=== PATIENT | male | born 1980 | race Caucasian/White ===

== ENCOUNTER 2017-01-06 00:43 | Emergency (ER) | payer MEDICAID ==
[2017-01-06 01:16] LABS: BASOPHILS 0.1 % (0-2); EOSINOPHILS 0.9 % (0-7); HEMATOCRIT 44.9 % (42.0-54.0); HEMOGLOBIN 15.9 g/dL (13.5-17.5); IMMATURE GRANULOCYTES 0.3 % (0-5); LYMPHOCYTES 24.4 % (15-50); MCH 32.9 pg (26.0-34.0); MCHC 35.4 g/dL (31.0-37.0); MEAN PLATELET VOLUME 9.4 fL (7.4-10.4); MONOCYTES 6.6 % (2-11); NEUTROPHILS 67.7 % (40-80); PLATELET COUNT 265 10x3/uL (130-400); RBC 4.83 10x6/uL (4.20-6.10); RDW 12.5 % (11.5-14.5); WBC 14.5 10x3/uL (4.8-10.8)
[2017-01-06 01:33] LABS: ALBUMIN 3.8 g/dL (3.4-5.0); ALKALINE PHOSPHATASE 52 U/L (46-116); ALT (SGPT) 35 U/L (10-68); CALC OSMOLALITY 275 mosm/kg (275-300); CALCIUM 8.8 mg/dL (8.5-10.1); CARBON DIOXIDE 28.8 mmol/L (21.0-32.0); CHLORIDE - SERUM 104 mmol/L (98-107); CREATININE - SERUM 1.2 mg/dL (0.6-1.3); GLUCOSE 116 mg/dL (74-106); POTASSIUM - SERUM 4.3 mmol/L (3.5-5.1); PROTEIN - SERUM 7.4 g/dL (6.4-8.2); SODIUM 138 mmol/L (136-145); UREA NITROGEN 9 mg/dL (7-18); eGFR NON AFRICAN AMERICAN 72 mL/min (90-120)
[2017-01-06 01:45] LABS: AMYLASE - SERUM 80 U/L (25-115); CKMB 0.4 U/L (0.0-3.6); CREATINE KINASE 126 UL (21-232); LIPASE 94 U/L (73-393); TROPONIN-I < 0.017 ng/mL (0.000-0.060)
== END 2017-01-06 02:59 | disposition home or self-care (01) ==
LOC: D.ER 00:43
PROVIDERS: Emergency Medicine
DX: J18.9 Pneumonia, unspecified organism (principal); R10.9 Unspecified abdominal pain

== ENCOUNTER 2017-03-03 20:34 | Emergency (ER) | payer MEDICAID ==
[2017-03-03 21:09] LABS: BASOPHILS 0.1 % (0-2); EOSINOPHILS 0.2 % (0-7); HEMOGLOBIN 16.6 g/dL (13.5-17.5); IMMATURE GRANULOCYTES 0.3 % (0-5); LYMPHOCYTES 9.4 % (15-50); MCH 33.1 pg (26.0-34.0); MCHC 36.1 g/dL (31.0-37.0); MCV 91.6 fL (80.0-100.0); MEAN PLATELET VOLUME 9.7 fL (7.4-10.4); MONOCYTES 6.7 % (2-11); NEUTROPHILS 83.3 % (40-80); PLATELET COUNT 253 10x3/uL (130-400); RBC 5.02 10x6/uL (4.20-6.10); RDW 12.5 % (11.5-14.5); WBC 14.3 10x3/uL (4.8-10.8)
[2017-03-03 21:25] LABS: ALBUMIN 3.8 g/dL (3.4-5.0); ALKALINE PHOSPHATASE 67 U/L (46-116); ALT (SGPT) 27 U/L (10-68); AMYLASE - SERUM 148 U/L (25-115); BILIRUBIN - TOTAL 0.88 mg/dL (0.2-1.3); CALC OSMOLALITY 279 mosm/kg (275-300); CALCIUM 8.7 mg/dL (8.5-10.1); CARBON DIOXIDE 25.4 mmol/L (21.0-32.0); CHLORIDE - SERUM 104 mmol/L (98-107); GLUCOSE 115 mg/dL (74-106); LIPASE 250 U/L (73-393); POTASSIUM - SERUM 3.7 mmol/L (3.5-5.1); PROTEIN - SERUM 7.5 g/dL (6.4-8.2); SODIUM 140 mmol/L (136-145); UREA NITROGEN 13 mg/dL (7-18); eGFR NON AFRICAN AMERICAN 89 mL/min (90-120)
== END 2017-03-04 00:30 | disposition home or self-care (01) ==
LOC: D.ER 20:34
PROVIDERS: Family Medicine
DX: K52.9 Noninfective gastroenteritis and colitis, unspecified (principal); R19.7 Diarrhea, unspecified; R50.9 Fever, unspecified; F17.200 Nicotine dependence, unspecified, uncomplicated

== ENCOUNTER → 2017-03-12 11:25 | Outpatient (CLI) | payer MEDICAID | END | disposition home or self-care (01) | LOC: D.CT 11:25 | DX: R06.00 Dyspnea, unspecified (principal) ==

== ENCOUNTER → 2017-03-18 12:33 | Outpatient (CLI) | payer MEDICAID | END | disposition home or self-care (01) | LOC: D.CT 12:33 | DX: R10.9 Unspecified abdominal pain (principal) ==

== ENCOUNTER 2017-05-13 23:15 | Emergency (ER) | payer BC | END 2017-05-14 00:32 | disposition home or self-care (01) | LOC: D.ER 23:15 | DX: K02.9 Dental caries, unspecified (principal); K08.89 Other specified disorders of teeth and supporting structures; M26.629 Arthralgia of temporomandibular joint, unspecified side ==

== ENCOUNTER 2017-05-20 11:31 | Emergency (ER) | payer BC ==
[2017-05-20 12:45] LABS: BASOPHILS 0.1 % (0-2); EOSINOPHILS 0.1 % (0-7); HEMATOCRIT 45.1 % (42.0-54.0); HEMOGLOBIN 15.8 g/dL (13.5-17.5); IMMATURE GRANULOCYTES 0.2 % (0-5); LYMPHOCYTES 15.5 % (15-50); MCH 32.6 pg (26.0-34.0); MCV 93.2 fL (80.0-100.0); MEAN PLATELET VOLUME 9.4 fL (7.4-10.4); MONOCYTES 10.5 % (2-11); NEUTROPHILS 73.6 % (40-80); PLATELET COUNT 231 10x3/uL (130-400); RBC 4.84 10x6/uL (4.20-6.10); RDW 12.5 % (11.5-14.5); WBC 14.3 10x3/uL (4.8-10.8)
[2017-05-20 13:14] LABS: ALBUMIN 3.4 g/dL (3.4-5.0); ALKALINE PHOSPHATASE 45 U/L (46-116); ALT (SGPT) 33 U/L (10-68); BILIRUBIN - TOTAL 0.79 mg/dL (0.2-1.3); CALC OSMOLALITY 269 mosm/kg (275-300); CARBON DIOXIDE 28.2 mmol/L (21.0-32.0); CHLORIDE - SERUM 98 mmol/L (98-107); CREATININE - SERUM 0.9 mg/dL (0.6-1.3); GLUCOSE 132 mg/dL (74-106); POTASSIUM - SERUM 4.7 mmol/L (3.5-5.1); PROTEIN - SERUM 7.2 g/dL (6.4-8.2); SODIUM 133 mmol/L (136-145); UREA NITROGEN 17 mg/dL (7-18); eGFR NON AFRICAN AMERICAN > 90 mL/min (90-120)
== END 2017-05-20 14:11 | disposition home or self-care (01) ==
LOC: D.ER 11:31
PROVIDERS: Family Medicine
DX: R50.9 Fever, unspecified (principal); K08.89 Other specified disorders of teeth and supporting structures; K05.10 Chronic gingivitis, plaque induced; F17.200 Nicotine dependence, unspecified, uncomplicated

== ENCOUNTER 2017-08-22 23:15 | Emergency (ER) | payer BC | END 2017-08-23 00:25 | disposition home or self-care (01) | LOC: D.ER 23:15 | DX: R06.00 Dyspnea, unspecified (principal); J68.9 Unspecified respiratory condition due to chemicals, gases, fumes and vapors; F17.200 Nicotine dependence, unspecified, uncomplicated ==

== ENCOUNTER 2017-10-08 12:04 | Emergency (ER) | payer BC ==
[2017-10-08 12:54] LABS: BASOPHILS 0.2 % (0-2); EOSINOPHILS 1.1 % (0-7); HEMATOCRIT 46.8 % (42.0-54.0); HEMOGLOBIN 16.6 g/dL (13.5-17.5); IMMATURE GRANULOCYTES 0.1 % (0-5); LYMPHOCYTES 34.4 % (15-50); MCH 32.9 pg (26.0-34.0); MCHC 35.5 g/dL (31.0-37.0); MCV 92.7 fL (80.0-100.0); MEAN PLATELET VOLUME 9.3 fL (7.4-10.4); MONOCYTES 6.2 % (2-11); PLATELET COUNT 268 10x3/uL (130-400); RBC 5.05 10x6/uL (4.20-6.10); RDW 12.6 % (11.5-14.5); WBC 9.9 10x3/uL (4.8-10.8)
[2017-10-08 13:12] LABS: ALBUMIN 4.1 g/dL (3.4-5.0); ALKALINE PHOSPHATASE 58 U/L (46-116); ALT (SGPT) 38 U/L (10-68); BILIRUBIN - TOTAL 0.75 mg/dL (0.2-1.3); CALC OSMOLALITY 275 mosm/kg (275-300); CALCIUM 9.5 mg/dL (8.5-10.1); CARBON DIOXIDE 28.6 mmol/L (21.0-32.0); CHLORIDE - SERUM 100 mmol/L (98-107); CREATININE - SERUM 1.1 mg/dL (0.6-1.3); GLUCOSE 99 mg/dL (74-106); POTASSIUM - SERUM 4.3 mmol/L (3.5-5.1); PROTEIN - SERUM 8.2 g/dL (6.4-8.2); SODIUM 138 mmol/L (136-145); UREA NITROGEN 13 mg/dL (7-18); eGFR NON AFRICAN AMERICAN 79 mL/min (90-120)
[2017-10-08 13:33] LABS: CKMB 0.7 U/L (0.0-3.6); CREATINE KINASE 164 UL (21-232)
[2017-10-08 13:34] LABS: TROPONIN-I < 0.017 ng/mL (0.000-0.060)
== END 2017-10-08 15:35 | disposition home or self-care (01) ==
LOC: D.ER 12:04
PROVIDERS: Emergency Medicine
DX: R07.89 Other chest pain (principal); F17.200 Nicotine dependence, unspecified, uncomplicated

== ENCOUNTER 2017-10-12 06:35 | Emergency (ER) | payer BC ==
[2017-10-12 07:38] LABS: BASOPHILS 0.2 % (0-2); EOSINOPHILS 0.9 % (0-7); HEMATOCRIT 43.7 % (42.0-54.0); HEMOGLOBIN 15.2 g/dL (13.5-17.5); IMMATURE GRANULOCYTES 0.2 % (0-5); MCH 32.5 pg (26.0-34.0); MCHC 34.8 g/dL (31.0-37.0); MCV 93.4 fL (80.0-100.0); MEAN PLATELET VOLUME 9.5 fL (7.4-10.4); MONOCYTES 5.6 % (2-11); NEUTROPHILS 70.1 % (40-80); PLATELET COUNT 248 10x3/uL (130-400); RBC 4.68 10x6/uL (4.20-6.10); RDW 12.6 % (11.5-14.5); WBC 12.9 10x3/uL (4.8-10.8)
[2017-10-12 07:52] LABS: APPEARANCE CLEAR (CLEAR); BILIRUBIN NEGATIVE (NEGATIVE); COLOR YELLOW (YELLOW); GLUCOSE NEGATIVE (NEGATIVE); KETONE NEGATIVE (NEGATIVE); NITRITE NEGATIVE (NEGATIVE); PROTEIN NEGATIVE (NEGATIVE); SPECIFIC GRAVITY 1.015 (1.005-1.020); UROBILINOGEN NORMAL (NORMAL)
[2017-10-12 07:56] LABS: ALBUMIN 3.8 g/dL (3.4-5.0); ALKALINE PHOSPHATASE 46 U/L (46-116); ALT (SGPT) 26 U/L (10-68); BILIRUBIN - TOTAL 0.38 mg/dL (0.2-1.3); CALC OSMOLALITY 278 mosm/kg (275-300); CALCIUM 9.2 mg/dL (8.5-10.1); CARBON DIOXIDE 26.8 mmol/L (21.0-32.0); CHLORIDE - SERUM 104 mmol/L (98-107); CREATININE - SERUM 1.1 mg/dL (0.6-1.3); GLUCOSE 112 mg/dL (74-106); POTASSIUM - SERUM 4.2 mmol/L (3.5-5.1); PROTEIN - SERUM 7.1 g/dL (6.4-8.2); SODIUM 139 mmol/L (136-145); UREA NITROGEN 13 mg/dL (7-18); eGFR NON AFRICAN AMERICAN 79 mL/min (90-120)
[2017-10-12 08:01] LABS: TROPONIN-I < 0.017 ng/mL (0.000-0.060)
== END 2017-10-12 13:02 | disposition home or self-care (01) ==
LOC: D.ER 06:35
PROVIDERS: Emergency Medicine
DX: G89.29 Other chronic pain (principal); N30.90 Cystitis, unspecified without hematuria; F17.200 Nicotine dependence, unspecified, uncomplicated

== ENCOUNTER 2018-01-11 22:37 | Emergency (ER) | payer BC ==
[~2018-01-11] VITALS: Ht 162.6 cm; Wt 65.8 kg
[2018-01-11 22:51] VITALS: Ht 162.6 cm; Wt 65.8 kg
[2018-01-11 23:52] LABS: HEMATOCRIT 46.6 % (42.0-54.0); HEMOGLOBIN 16.5 g/dL (13.5-17.5); MCH 32.2 pg (26.0-34.0); MCHC 35.4 g/dL (31.0-37.0); MEAN PLATELET VOLUME 9.2 fL (7.4-10.4); NEUTROPHILS 84.1 % (40-80); PLATELET COUNT 205 10x3/uL (130-400); RBC 5.12 10x6/uL (4.20-6.10); RDW 13.3 % (11.5-14.5); WBC 19.6 10x3/uL (4.8-10.8)
[2018-01-12 00:21] LABS: ALBUMIN 3.7 g/dL (3.4-5.0); ANION GAP 17.7 mmol/L (8-16); BILIRUBIN - TOTAL 0.9 mg/dL (0.2-1.3); CALCIUM 9.5 mg/dL (8.5-10.1); CARBON DIOXIDE 24.2 mmol/L (21.0-32.0); CREATININE - SERUM 1.4 mg/dL (0.6-1.3); POTASSIUM - SERUM 3.9 mmol/L (3.5-5.1); PROTEIN - SERUM 8.4 g/dL (6.4-8.2)
[2018-01-12 00:46] LABS: APPEARANCE CLEAR (CLEAR); BILIRUBIN NEGATIVE (NEGATIVE); COLOR YELLOW (YELLOW); GLUCOSE NEGATIVE (NEGATIVE); KETONE LARGE mg/dL (NEGATIVE); NITRITE NEGATIVE (NEGATIVE); PROTEIN 3+ mg/dL (NEGATIVE); UROBILINOGEN NORMAL (NORMAL)
[2018-01-12 00:47] LABS: BACTERIA FEW /hpf (NONE SEEN); EPITHELIAL CELLS 0-5 /hpf (0-5); HYALINE CAST 0-5 /lpf (NONE SEEN); MUCUS <1+ /lpf (NONE SEEN); RED CELLS - URINE 0-5 /hpf (0-5); WHITE CELLS - URINE 0-5 /hpf (0-5)
[2018-01-12] MEDS ORDERED: CIPRO500 MG PO (01:50)
[2018-01-12] MEDS ORDERED: FLAGYL500 MG PO (01:50)
[2018-01-12] MEDS ORDERED: ZOFRAN ODT4 MG/UDTAB PO (01:51)
[2018-01-12 02:24] VITALS: BP 128/68
== END 2018-01-12 02:10 | disposition home or self-care (01) ==
LOC: D.ER 22:37
PROVIDERS: Emergency Medicine
DX: K52.9 Noninfective gastroenteritis and colitis, unspecified (principal); R19.7 Diarrhea, unspecified; F17.200 Nicotine dependence, unspecified, uncomplicated

== ENCOUNTER 2018-06-25 13:41 | Emergency (ER) | payer BC ==
[~2018-06-25] VITALS: Ht 162.6 cm; Wt 65.9 kg
[~2018-06-25 13:41] MED LIST: CIPRO500 MG PO; FLAGYL500 MG PO; ZOFRAN ODT4 MG/UDTAB PO
[2018-06-25 13:49] VITALS: Ht 162.6 cm; Wt 65.9 kg
[2018-06-25] MEDS ORDERED: OMEPRAZOLE20 M1 PO (16:06)
[2018-06-25 16:21] VITALS: BP 149/89
== END 2018-06-25 16:15 | disposition home or self-care (01) ==
LOC: D.ER 13:41
DX: R10.13 Epigastric pain (principal); F17.200 Nicotine dependence, unspecified, uncomplicated